=== PATIENT | male | born 1965 | race Caucasian/White ===

== ENCOUNTER 2019-01-02 08:35 | Emergency (ER) | payer OTHER ==
[~2019-01-02] VITALS: Ht 165.1 cm; Wt 93.4 kg
[2019-01-02] MEDS ORDERED: SYNTHROID75 MCG (09:34)
[2019-01-02] MEDS ORDERED: BENADRYL50 MG PO (10:42)
[2019-01-02] MEDS ORDERED: INTESTINEX680 M1 PO (10:42)
[2019-01-02] MEDS ORDERED: ALL DAY ALLERGY10 M3 PO (10:42)
[2019-01-02] MEDS ORDERED: AMOX-CLAV 875-1 EACH PO (10:42)
== END 2019-01-02 11:00 | disposition home or self-care (01) ==
LOC: ER 08:35
DX: S50.872A Other superficial bite of left forearm, initial encounter (principal); L03.114 Cellulitis of left upper limb; W57.XXXA Bitten or stung by nonvenomous insect and other nonvenomous arthropods, initial encounter; Y93.89 Activity, other specified; Y92.89 Other specified places as the place of occurrence of the external cause; Y99.8 Other external cause status

== ENCOUNTER 2019-07-24 18:49 | Emergency (ER) | payer OTHER ==
[~2019-07-24] VITALS: Ht 165.1 cm; Wt 97.5 kg
[~2019-07-24 18:49] MED LIST: ALL DAY ALLERGY10 M3 PO; AMOX-CLAV 875-1 EACH PO; BENADRYL50 MG PO; INTESTINEX680 M1 PO; SYNTHROID75 MCG
== END 2019-07-24 23:11 | disposition home or self-care (01) ==
LOC: ER 18:49
DX: J06.9 Acute upper respiratory infection, unspecified (principal)

== ENCOUNTER 2021-02-28 09:47 | Emergency (ER) | payer OTHER ==
[~2021-02-28] VITALS: Ht 165.1 cm; Wt 77.1 kg
[2021-02-28] MEDS ORDERED: KETO10TA2 PO (11:17)
[2021-02-28] MEDS ORDERED: NORFLEX100MG PO (11:17)
== END 2021-02-28 11:35 | disposition home or self-care (01) ==
LOC: ER 09:47
DX: M54.59 Other low back pain (principal)

== ENCOUNTER 2021-03-16 13:20 | Emergency (ER) | payer OTHER ==
[~2021-03-16] VITALS: Ht 165.1 cm; Wt 77.1 kg
[~2021-03-16 13:20] MED LIST changes: +KETO10TA2 PO; +NORFLEX100MG PO
[2021-03-16] MEDS ORDERED: KETO10TA2 PO (16:56)
[2021-03-16] MEDS ORDERED: PERCOCET 5-3251 EACH PO (16:56)
== END 2021-03-16 17:47 ==
LOC: ER 13:20
DX: M25.512 Pain in left shoulder (principal); Z98.890 Other specified postprocedural states; I10 Essential (primary) hypertension

== ENCOUNTER 2021-08-02 17:52 | Emergency (ER) | payer OTHER ==
[~2021-08-02] VITALS: Ht 165.1 cm; Wt 79.4 kg
[~2021-08-02 17:52] MED LIST changes: +PERCOCET 5-3251 EACH PO
[2021-08-02] MEDS ORDERED: NAPRELAN PO (20:24)
== END 2021-08-02 20:32 | disposition home or self-care (01) ==
LOC: ER 17:52
DX: R68.84 Jaw pain (principal); I10 Essential (primary) hypertension; Z88.2 Allergy status to sulfonamides